=== PATIENT | male | born 1970 | race Caucasian/White ===

== ENCOUNTER 2018-02-21 19:58 | Emergency (ER) | payer SELFPAY ==
[~2018-02-21] VITALS: Ht 180.3 cm; Wt 77.1 kg
[2018-02-21] MEDS ORDERED: NORCO 5-325 TA1 EACH PO (21:51)
== END 2018-02-21 22:05 | disposition home or self-care (01) ==
LOC: ED 19:58
DX: M10.9 Gout, unspecified (principal); I10 Essential (primary) hypertension
CPT/HCPCS: 99283